=== PATIENT | male | born 2000 | race American Indian/Alaskan Native ===

== ENCOUNTER 2020-05-28 18:15 | Emergency (ER) | payer SELFPAY ==
--- NOTE | 2020-05-28 18:49 | Event Note ---
ED Screening Note Date of service: 05/28/20 Time: 18:49 ED Screening Note: Patient complains of a penile/testicular rash x1 week Denies pain This initial assessment/diagnostic orders/clinical plan/treatment(s) is/are subject to change based on patients health status, clinical progression and re- assessment by fellow clinical providers in the ED. Further treatment and workup at subsequent clinical providers discretion. Patient/guardian urged not to elope from the ED as their condition may be serious if not clinically assessed and managed. Initial orders include: Further evaluation in [facility]
--- NOTE | 2020-05-28 21:12 | Emergency Department Report ---
Chief Complaint: Urogenital-Male Stated Complaint: CHECK UP Time Seen by Provider: 05/28/20 18:47 - HPI History of Present Illness: 20-year-old -[place] male patient presents with complaints of penile rash x1 week. Patient states after about 5 days the rash did resolve, however he is wanting to know what the cause was. He states the rash was itchy, but denies any pain, drainage, penile/testicular swelling, penile discharge, dysuria/hematuria/urinary frequency, abdominal pain, or fever/chills/sweats. Patient also denies any previous history of genital herpes MSE screening note: Focused history and physical exam performed. Due to findings the following was ordered: ED Medical Decision Making - Medical Decision Making 20-year-old -[place] male patient presents with complaints of penile rash x1 week. Patient states after about 5 days the rash did resolve, however he is wanting to know what the cause was. He states the rash was itchy, but denies any pain, drainage, penile/testicular swelling, penile discharge, dysuria/hematuria/urinary frequency, abdominal pain, or fever/chills/sweats. Patient also denies any previous history of genital herpes Healed herpetic lesion noted without erythema or swelling of the penis. No treatment is indicated at this time. Recommend patient follows up with primary care for further treatment and evaluation. Strict return precautions were discussed in detail with patient who verbalizes understanding. His vitals are normal, he is well-appearing, he is stable for discharge home ED Disposition for MSE Clinical Impression: Herpes genitalia Qualifiers: Herpes simplex infection site: penis Qualified Code(s): A60.01 - Herpesviral infection of penis Disposition: MED SCREENING EXAM-LEFT Is pt being admited?: No Condition: Stable Instructions: Genital Herpes Referrals: BALAJI ELI MD [Staff Physician] - 3-5 Days ED Physical Exam - General Limitations: No Limitations General appearance: alert, in no apparent distress - Head Head exam: Present: atraumatic, normocephalic - Eye Eye exam: Present: normal appearance. Absent: scleral icterus - Respiratory Respiratory exam: Present: normal lung sounds bilaterally. Absent: respiratory distress - Cardiovascular Cardiovascular Exam: Present: regular rate, normal rhythm - External exam: Present: other (Healed small less than 1 cm lesions noted to right penile shaft without erythema, crusting, or tenderness to palpation.) - Back Exam Back exam: Present: normal inspection - Neurological Exam Neurological exam: Present: alert, oriented X3 - Psychiatric Psychiatric exam: Present: normal affect, normal mood ED Review of Systems ROS: Stated complaint: CHECK UP Other details as noted in HPI Constitutional: denies: chills, fever, malaise ENT: denies: throat pain Genitourinary: denies: urgency, dysuria, frequency, hematuria Skin: as per HPI. denies: change in color Neurological: denies: numbness, paresthesias Hematological/Lymphatic: denies: swollen glands
[2020-05-28 21:15] VITALS: BP 143/98
== END 2020-05-28 19:00 | disposition left against medical advice (07) ==
LOC: ED 18:15
DX: A60.01 Herpesviral infection of penis (principal); Z53.21 Procedure and treatment not carried out due to patient leaving prior to being seen by health care provider